=== PATIENT | male | born 1970 | race Caucasian/White ===

== ENCOUNTER → 2016-09-29 | Outpatient (CLI) | payer BC | LOC: RT 11:51 | DX: R07.9 Chest pain, unspecified (principal) | CPT/HCPCS: 93005 ==

== ENCOUNTER 2021-12-29 10:19 | Emergency (ER) | payer SELFPAY ==
[~2021-12-29 10:19] MED LIST: CELEBREX 200MG200 MG PO; CYCLOBENZAPRINE10 MG PO; POTASSIUM20 MEQ/11 PO
[2021-12-29] MEDS ORDERED: MELOXICAM15 MG PO (12:25)
== END 2021-12-29 13:00 | disposition home or self-care (01) ==
LOC: ER1 10:19
DX: S83.92XA Sprain of unspecified site of left knee, initial encounter (principal); S86.912A Strain of unspecified muscle(s) and tendon(s) at lower leg level, left leg, initial encounter; W01.0XXA Fall on same level from slipping, tripping and stumbling without subsequent striking against object, initial encounter; Y99.0 Civilian activity done for income or pay
CPT/HCPCS: 73564; 99283